=== PATIENT | male | born 1980 | race Two or more races ===

== ENCOUNTER 2021-02-03 10:34 | Inpatient (IN) | payer OTHER ==
[~2021-02-03] VITALS: Ht 175.3 cm; Wt 118.2 kg
[2021-02-03] MEDS ORDERED: HALOPERIDOL 5 MG TABLET PO ONE (11:00)
[2021-02-03] MEDS ORDERED: LORazepam 1 MG TABLET PO ONE (11:00)
[2021-02-03 11:12] LABS: COVID AG,FIA SOURCE NASOPHARYNGEAL
[2021-02-03 11:16] LABS: BASOPHILS % (AUTO) 0.8 % (0.0-2.0); HEMATOCRIT 49.9 % (41-53); HEMOGLOBIN 16.9 g/dL (13.5-17.5); LYMPHOCYTES # (AUTO) 1.7 K/uL (1.0-4.8); LYMPHOCYTES % (AUTO) 19.1 % (22.0-44.0); MEAN CORPUSCULAR HEMOGLOBIN 29.8 pg (26.0-34.0); MEAN CORPUSCULAR HGB CONC 33.9 G/dL (31.0-37.0); MEAN CORPUSCULAR VOLUME 88 fL (80-100); MONOCYTES # (AUTO) 0.9 K/uL (0.1-1.0); MONOCYTES % (AUTO) 10.2 % (2.0-9.0); NEUTROPHILS % (AUTO) 68.9 % (40.0-70.0); PLATELET COUNT (AUTO) 241 K/uL (150-450); RED BLOOD CELL COUNT(AUTO) 5.67 MIL/uL (4.50-5.90); RED CELL DISTRIBUTION WIDTH 14.8 % (11.5-14.5)
[2021-02-03 11:25] LABS: ANION GAP 13 mmol/L (8-16); CALCIUM, TOTAL 9.5 mg/dL (8.8-10.5); CARBON DIOXIDE 24 mmol/L (22-29); CHLORIDE 103 mmol/L (98-107); GLOMERULAR FILTR. RATE CALC > 60 mL/min (>60); GLUCOSE,RANDOM 106 mg/dL (70-110); POTASSIUM 4.1 mmol/L (3.5-5.1); SODIUM SERUM 140 mmol/L (136-145); UREA NITROGEN, BLOOD 12 mg/dL (7-18)
[2021-02-03 11:30] LABS: ALANINE AMINOTRANSFERASE 72 U/L (12-78); ALBUMIN 4.3 g/dL (3.4-5.0); ALKALINE PHOSPHATASE 80 U/L (46-116); ASPARTATE AMINOTRANSFERASE 30 U/L (15-37); BILIRUBIN,TOTAL 0.7 mg/dL (0.1-1.0); TOTAL PROTEIN, SERUM 8.3 g/dL (6.4-8.2)
[2021-02-03] MEDS ORDERED: ONDANSETRON HCL 4 MG/2 ML VIAL IVP PRN (13:00)
[2021-02-03] MEDS ORDERED: ACETAMINOPHEN 325 MG TABLET PO PRN ×2 (13:00→15:45)
[2021-02-03] MEDS ORDERED: ALBUTEROL SULFATE HFA 90 MCG/PUFF 8 GM INHALER IH PRN (15:45)
[2021-02-03] MEDS ORDERED: MAG HYDROX/AL HYDROX/SIMETH ES 30 ML SUSPENSION UDCUP PO PRN (15:45)
[2021-02-03] MEDS ORDERED: LOPERAMIDE HCL 2 MG CAPSULE PO PRN (15:45)
[2021-02-03] MEDS ORDERED: ONDANSETRON HCL 4 MG TABLET PO PRN (15:45)
[2021-02-03] MEDS ORDERED: PETROLATUM,WHITE 28 GM JELLY TP PRN (15:45)
[2021-02-03] MEDS ORDERED: NICOTINE 14 MG/24 HOUR PATCH TD PRN (15:45)
[2021-02-03] MEDS ORDERED: CloNIDine HCL 0.1 MG TABLET PO PRN (15:45)
[2021-02-03] MEDS ORDERED: MAGNESIUM HYDROXIDE SUSPENSION 30 ML UDCUP PO PRN (15:45)
[2021-02-03] MEDS ORDERED: DOCUSATE SODIUM 100 MG CAPSULE PO PRN (15:45)
[2021-02-03] MEDS ORDERED: GuaiFENesin/D-METHORPHAN [SUGAR-FREE] 200-20MG/10 ML SYRUP UDCUP PO PRN (15:45)
[2021-02-03] MEDS ORDERED: IBUPROFEN 400 MG TABLET PO PRN (15:45)
[2021-02-03 19:08] VITALS: BP 116/85
[2021-02-03 21:19] VITALS: BP 99/61
[2021-02-04 04:45] VITALS: BP 93/65
[2021-02-04 07:31] VITALS: BP 100/58
[2021-02-04 20:30] VITALS: BP 94/67
[2021-02-05 05:10] VITALS: BP 96/59
[2021-02-05 08:00] VITALS: BP 98/63
[2021-02-05] MEDS ORDERED: HydrOXYzine PAMOATE 50 MG CAPSULE PO PRN (12:00)
[2021-02-05] MEDS: OLANZapine 5 MG TABLET PO SCH ×2 (12:32→20:19)
[2021-02-05] MEDS: BusPIRone HCL 10 MG TABLET PO SCH ×2 (12:32→20:19)
[2021-02-05] MEDS: SERTRALINE HCL 50 MG TABLET PO SCH (12:34)
[2021-02-05] MEDS: TraZODone HCL 50 MG TABLET PO SCH (20:19)
[2021-02-05 20:21] VITALS: BP 101/74
[2021-02-06 04:41] VITALS: BP 97/58
[2021-02-06 04:55] LABS: AMPHET/METH SCREEN,URINE NEGATIVE (NEGATIVE); BARBITURATE SCREEN, URINE NEGATIVE (NEGATIVE); BENZODIAZEPINES SCREEN,URINE NEGATIVE (NEGATIVE); CANNABINOID SCREEN,URINE NEGATIVE (NEGATIVE); COCAINE SCREEN,URINE NEGATIVE (NEGATIVE); METHADONE SCREEN, URINE NEGATIVE (NEGATIVE); OPIATE SCREEN,URINE NEGATIVE (NEGATIVE)
[2021-02-06 04:58] LABS: PHENCYCLIDINE SCREEN,URINE NEGATIVE (NEGATIVE)
[2021-02-06 07:50] VITALS: BP 84/46
[2021-02-06] MEDS: BusPIRone HCL 10 MG TABLET PO SCH ×2 (08:39→19:59)
[2021-02-06] MEDS: OLANZapine 5 MG TABLET PO SCH ×2 (08:39→19:59)
[2021-02-06] MEDS: SERTRALINE HCL 50 MG TABLET PO SCH (08:39)
[2021-02-06 08:44] VITALS: BP 115/65
[2021-02-06] MEDS: TraZODone HCL 50 MG TABLET PO SCH (19:59)
[2021-02-06 20:45] VITALS: BP 99/64
[2021-02-07 04:40] VITALS: BP 97/63
[2021-02-07] MEDS: OLANZapine 5 MG TABLET PO SCH (08:11)
[2021-02-07] MEDS: BusPIRone HCL 10 MG TABLET PO SCH (08:11)
[2021-02-07] MEDS: SERTRALINE HCL 50 MG TABLET PO SCH (08:11)
[2021-02-07 08:42] VITALS: BP 117/57
[2021-02-07] MEDS ORDERED: BUSP10TA23 PO (11:10)
[2021-02-07] MEDS ORDERED: OLAN5TAB52 PO (11:11)
[2021-02-07] MEDS ORDERED: SERT-158 PO (11:11)
[2021-02-07] MEDS ORDERED: TRAZ-252 PO (11:11)
== END 2021-02-07 16:10 | DRG 885 ==
LOC: EMS 10:47 → 5S 18:45 → 6S 18:46
PROVIDERS: ADMIT Internal Medicine; ATTEND Internal Medicine
DX: F25.1 Schizoaffective disorder, depressive type (principal); R45.851 Suicidal ideations; F41.9 Anxiety disorder, unspecified; Z20.822 Contact with and (suspected) exposure to COVID-19
CPT/HCPCS: 80053; 85025; 99285; G0480